=== PATIENT | female | born 1965 | race Caucasian/White ===

== ENCOUNTER 2023-02-22 10:12 | Emergency (ER) | payer MEDICAID, OTHER ==
[~2023-02-22] VITALS: Ht 165.1 cm; Wt 96.3 kg
[2023-02-22] MEDS ORDERED: ACETAMINOPHEN 325MG TABLET PO ONE (10:45)
[2023-02-22] MEDS ORDERED: LIDOCAINE 5% PATCH TOP SCH (10:45)
[2023-02-22] MEDS ORDERED: NAPR-681 MT (11:50)
[2023-02-22] MEDS ORDERED: LIDO700A15 TP (11:50)
[2023-02-22 12:14] VITALS: BP 121/78
== END 2023-02-22 12:15 | disposition home or self-care (01) ==
LOC: ER 10:12
DX: R07.81 Pleurodynia (principal); R51.9 Headache, unspecified; E78.00 Pure hypercholesterolemia, unspecified; I10 Essential (primary) hypertension
CPT/HCPCS: 71101; 99283